=== PATIENT | female | born 1945 | race Caucasian/White ===

== ENCOUNTER → 2017-10-31 | Outpatient (CLI) | payer MEDICARE, OTHER ==
[~2017-10-31] MED LIST: AMBIEN 5 MG TABL5 M1 PO; AMOXICILLIN 50500 MG PO; ASPIR 8181 MG PO; ASPIRIN325 PO; ASPIRIN81 M2 PO; CELEXA20 MG PO; GLUCOTROL5 MG PO; HUMALOG100 UNIT/1 SUBQ; HYDROCHLOROTHIA25 M2 PO; IRON PO; LEVOTHYROXIN0.075 MG PO; LIPITOR 20 MG T20 M1 PO; LISINOPRIL10 MG PO; NORCO 5-325 TA1 EACH PO; NORVASC2.5 MG PO; PEPCID20 MG PO; PRANDIN1 MG PO; SIMVASTATIN40 MG PO; TYLENOL325 MG PO; VITAMIN B-12500 MCG PO
== END ==
LOC: M.RAD 09:17
DX: M54.42 Lumbago with sciatica, left side (principal); M25.552 Pain in left hip; R10.2 Pelvic and perineal pain; I69.398 Other sequelae of cerebral infarction; K21.9 Gastro-esophageal reflux disease without esophagitis; E11.9 Type 2 diabetes mellitus without complications; E03.9 Hypothyroidism, unspecified; E78.5 Hyperlipidemia, unspecified; I10 Essential (primary) hypertension; I44.7 Left bundle-branch block, unspecified; I25.10 Atherosclerotic heart disease of native coronary artery without angina pectoris; Z98.890 Other specified postprocedural states; Z90.710 Acquired absence of both cervix and uterus

== ENCOUNTER 2017-11-08 11:31 | Emergency (ER) | payer MEDICARE, OTHER ==
[~2017-11-08] VITALS: Ht 162.6 cm; Wt 81.7 kg
--- NOTE | ~2017-11-08 | EKG ---
[place] [address] ELECTROCARDIOGRAM REPORT Name: ARON YANG Room: [facility]#: [id number] Admission: 11/08/17 Attend Phys: Discharge: 11/08/17 Date of : 43 Report #: [id number] THIS REPORT FOR: //name// [facility] ED Test Date: 2017-11-08 Test Time: 11:38:21 Pat Name: ARON CELIA Department: Room: Gender: F Data Security Analyst: Diego VICENTE : 1945 Requested By: Christo Carey Order Number: [id number] MD: Measurements Intervals [place] Rate: 87 P: 46 UT: 159 QRS: -16 QRSD: 141 T: 111 QT: 386 QTc: 465 Interpretive Statements Sinus rhythm Consider left atrial enlargement Left bundle branch block Compared to ECG 01/08/2017 14:50:46 No significant changes [email or web address] By: [id number] Epiphany EpiphanyMD /EPI
[~2017-11-08 11:31] MED LIST changes: -ASPIR 8181 MG PO; -GLUCOTROL5 MG PO; -HYDROCHLOROTHIA25 M2 PO; -IRON PO; -NORCO 5-325 TA1 EACH PO; -PRANDIN1 MG PO; -SIMVASTATIN40 MG PO
[2017-11-08 12:06] LABS: ABSOLUTE BASOPHILS 0.1 thou/uL (0.0-0.2); ABSOLUTE EOSINOPHILS 0.1 thou/uL (0.0-0.7); ABSOLUTE LYMPHOCYTES 2.5 thou/uL (0.8-5.3); ABSOLUTE MONOCYTES 0.9 thou/uL (0.0-1.2); ABSOLUTE NEUTROPHILS 7.3 thou/uL (1.6-8.1); BASOPHILS 0.6 %; EOSINOPHILS 1.3 %; HEMATOCRIT 39.5 % (37.0-47.0); HEMOGLOBIN 13.1 gm/dL (12.0-15.0); LYMPHOCYTES 23.1 %; MCH 26.1 pg (26.0-34.0); MCHC 33.1 g/dL (28.0-37.0); MONOCYTES 8.1 %; MPV 7.8 fl. (7.2-11.1); NUCLEATED RBCS 0 /100WBC; PLATELET COUNT* 335 thou/uL (150-400); POLYS 66.9 %; RBC 5.01 mil/uL (4.20-5.00); RDW-CV 15.8 % (10.5-14.5); WBC 10.8 thou/uL (4.0-11.0)
[2017-11-08 12:15] LABS: ANION GAP 12 mmol/L (7-16); BUN 22 mg/dL (7-18); CALCIUM 9.2 mg/dL (8.5-10.1); CHLORIDE 99 mmol/L (98-107); CO2 25 mmol/L (21-32); CREATININE 1.1 mg/dL (0.6-1.3); GLUCOSE 163 mg/dL (70-99); POTASSIUM 3.1 mmol/L (3.5-5.1); SODIUM 136 mmol/L (136-145)
[2017-11-08 12:19] LABS: APTT 23.3 Seconds (25.0-31.3); INR 1.1; PROTIME 10.7 Seconds (9.20-11.50)
[2017-11-08 12:26] LABS: ALBUMIN 3.8 g/dL (3.4-5.0); ALKALINE PHOSPHATASE 83 U/L (46-116); NT-PRO BRAIN NAT PEPTIDE 20 pg/mL (<300); SGOT 19 U/L (15-37); SGPT 35 U/L (30-65); TOTAL BILIRUBIN 0.3 mg/dL (<0.1-1.0); TOTAL PROTEIN 7.4 g/dL (6.4-8.2); TROPONIN-I LEVEL <0.06 ng/mL (<0.06)
[2017-11-08] MEDS ORDERED: PRANDIN1 MG PO (12:48)
[2017-11-08] MEDS ORDERED: GLUCOTROL5 MG PO (12:48)
[2017-11-08] MEDS ORDERED: ASPIR 8181 MG PO (12:48)
[2017-11-08] MEDS ORDERED: HYDROCHLOROTHIA25 M2 PO (12:49)
[2017-11-08] MEDS ORDERED: SIMVASTATIN40 MG PO (12:50)
[2017-11-08] MEDS ORDERED: IRON PO (12:56)
[2017-11-08 13:01] VITALS: BP 140/85
== END 2017-11-08 13:02 | disposition home or self-care (01) ==
LOC: M.ERS 11:31
PROVIDERS: Family Medicine
DX: R53.1 Weakness (principal); I10 Essential (primary) hypertension; E11.9 Type 2 diabetes mellitus without complications; E03.9 Hypothyroidism, unspecified; G43.909 Migraine, unspecified, not intractable, without status migrainosus; K21.9 Gastro-esophageal reflux disease without esophagitis; F41.9 Anxiety disorder, unspecified; Z90.710 Acquired absence of both cervix and uterus; Z87.442 Personal history of urinary calculi; Z86.73 Personal history of transient ischemic attack (TIA), and cerebral infarction without residual deficits; Z88.8 Allergy status to other drugs, medicaments and biological substances; Z88.1 Allergy status to other antibiotic agents; Z88.5 Allergy status to narcotic agent; Z88.2 Allergy status to sulfonamides

== ENCOUNTER → 2017-11-08 | Outpatient (CLI) | payer MEDICARE, OTHER | LOC: M.MRI 13:49 | DX: M51.26 Other intervertebral disc displacement, lumbar region (principal); M25.78 Osteophyte, vertebrae; M46.86 Other specified inflammatory spondylopathies, lumbar region; K21.9 Gastro-esophageal reflux disease without esophagitis; E11.9 Type 2 diabetes mellitus without complications; E03.9 Hypothyroidism, unspecified; E78.5 Hyperlipidemia, unspecified; I10 Essential (primary) hypertension; I25.10 Atherosclerotic heart disease of native coronary artery without angina pectoris; I44.7 Left bundle-branch block, unspecified; I69.398 Other sequelae of cerebral infarction; N39.0 Urinary tract infection, site not specified; I69.354 Hemiplegia and hemiparesis following cerebral infarction affecting left non-dominant side; I69.320 Aphasia following cerebral infarction; I69.321 Dysphasia following cerebral infarction; Z87.442 Personal history of urinary calculi; Z90.710 Acquired absence of both cervix and uterus ==

== ENCOUNTER → 2017-11-21 | Outpatient (CLI) | payer MEDICARE, OTHER ==
[~2017-11-21] MED LIST changes: +ASPIR 8181 MG PO; +GLUCOTROL5 MG PO; +HYDROCHLOROTHIA25 M2 PO; +IRON PO; +NORCO 5-325 TA1 EACH PO; +PRANDIN1 MG PO; +SIMVASTATIN40 MG PO
--- NOTE | 2018-01-01 08:22 | PAINCON ---
[address] [address] PAIN MANAGEMENT CONSULTATION Name: ARON YANG Room: [facility] Paz#: [id number] Admission: 11/21/17 Attend Phys: Jabari Doshi MD Discharge: Date of : 43 Report #: [id number] THIS REPORT FOR: //name// CC: MAIA LOUIS DO Maia Doshi DATE OF SERVICE: 11/21/2017 HISTORY OF PRESENT ILLNESS: The patient is a 72-year-old female who has been referred to the Pain Clinic for evaluation. States that she has been having pain and discomfort, which has worsened over the last 3 to 4 weeks. She is having pain in her left hip as well as down into the low back area radiating down to her left leg. She has had problems with her leg and has had back surgery on two occasions in the past. She rates her pain as a 7 to 8. She notes that her pain became more problematic around [place] time after she moved furniture around her house. She went to her primary care physician. At that time, she was given a Medrol Dosepak, which she completed. She continues to have pain that is radiating down her left leg. She has tried nonsteroidal anti-inflammatory medications without significant improvement. Denies any significant bowel or bladder discomfort. She tried tizanidine to help decrease the spasm and pain. She notes that she had some side effects as a result of this medication. She has continued to take Neurontin. At this juncture, she has come to the Pain Clinic with the hopes of proceeding with an epidural steroid injection to help quiet her pain. ALLERGIES: CIPROFLOXACIN, CODEINE, LISINOPRIL, SULFA, TRILEPTAL, LEVAQUIN, OMEPRAZOLE, SOME REACTION TO TIZANIDINE. CURRENT MEDICATIONS: Enteric aspirin 81 mg daily, Celexa 20 mg daily, Glucotrol 5 mg b.i.d., hydrochlorothiazide 25 mg, Synthroid 0.075 mg, Prandin 1 mg t.i.d., Zocor 40 mg evening, Ambien 5 mg at bedtime, iron. PAST MEDICAL HISTORY: 1. Migraines. 2. GERD. 3. Anxiety. 4. CVA. 5. TIAs. 6. Hypertension. 7. Diabetes. 8. Kidney stones. 9. Hypothyroidism. 10. Anxiety. PAST SURGICAL HISTORY: [place] [address] PAIN MANAGEMENT CONSULTATION Name: ARON YANG Chapis Room: [facility]#: [id number] Admission: 11/21/17 Attend Phys: Jabari Doshi MD Discharge: Date of : 43 Report #: [id number] 1. Right ICA coiling. 2. Back surgery x 2. 3. Carpal tunnel release. 4. Cataract. SOCIAL HISTORY: The patient is a nonsmoker. She does not drink. Denies use of illegal drugs. FAMILY HISTORY: Coronary artery disease and hypertension. REVIEW OF SYSTEMS: Generally in good health given her current condition. Denies any significant fevers, weight loss, weight gain. HEENT: Eyes: Blurred vision with some visual loss. Ears: Denies any tinnitus or hearing loss. Denies nosebleeds or nasal congestion. CARDIAC: Reports history of occasional heart fluttering. RESPIRATORY: Denies significant sputum production. She has right-sided shoulder pain history. No significant skin rashes or lesions. Occasional left-sided paresis related to her old stroke. Denies any significant bleeding at this juncture. LABORATORY DATA: No new lab values are available at the time of our interview. PHYSICAL EXAMINATION: VITAL SIGNS: Blood pressure 142/66, heart rate 78, respiratory rate 16, room air saturation 96%, temperature 98.0, height 5 feet 5 inches, weight 173 pounds, BMI is 28. GENERAL: The patient is a well-developed white female, appears her stated age. She is alert and oriented x 3. Affect appears appropriate. HEENT: Head is atraumatic. Hearing is within normal limits. Extraocular eye muscles intact and sclerae are nonicteric. No nasal discharge or complaints. Moist buccal membranes. NECK: Without adenopathy or masses. LUNGS: Clear to auscultation. ABDOMEN: Nontender. MUSCULOSKELETAL: Alignment, the patient complains of pain in her lower back as well as pain radiating into the left hip and down into the posterior portion of her left leg in the L5 dermatomal distribution. The patient notes numbness, tingling and weakling down in the L5-S1 dermatomal distribution. She has a well-healed scar in the mid portion of her back. IMPRESSION: 1. History of back pain, status post back surgery x 2 with evidence of L5-S1 nerve root irritation after moving furniture at home 2. Anxiety. 3. Aphasia history. 4. Cerebrovascular accident. 5[place] [address] PAIN MANAGEMENT CONSULTATION Name: ARON YANG Room: [facility]#: [id number] Admission: 11/21/17 Attend Phys: Jabari Doshi MD Discharge: Date of : 43 Report #: [id number] 6. Diabetes mellitus. 7. Hypertension. 8. Hypothyroidism. 9. Insomnia. RECOMMENDATIONS: We discussed treatment options with the patient. Risks and benefits of an epidural steroid injection were discussed. The patient has had surgery in the lower portion of her back. At this point, the normal anatomy has been changed secondary to the surgery. We explained to the patient that a transforaminal epidural steroid injection would be a reasonable approach. Possible complications of the procedure were reviewed with the patient. They include but are not limited to infection, increased muscle soreness, headache, bleeding, nerve damage. We reviewed the patient's problem using a model. She states that she understands and would like to proceed. PROCEDURE NOTE: The patient was placed in the prone position. Fluoroscopy was used to identify the left target area, which is at the L5-S1 area. Anterior and posterior views with fluoroscopy as well as a lateral view was used to identify the appropriate location. The patient's back was sterilely prepped. It was infiltrated with 0.25% bupivacaine. Total of 80 mg Depo-Medrol and 20 mg triamcinolone was injected after appropriate positioning. Aspiration did not reveal any more CSF. The patient remained in the Pain Clinic for an appropriate amount of time. She will follow up in the future for additional treatment as needed. We would like to thank you for letting us participate in her care. We hope she continues to improve. <ELECTRONICALLY SIGNED> By: Jabari Doshi MD 01/01/18 0822 0846 2204N. Juve Doshi MD /nt
== END | disposition home or self-care (01) ==
LOC: M.PC 01:44
DX: M54.16 Radiculopathy, lumbar region (principal); I10 Essential (primary) hypertension; E11.9 Type 2 diabetes mellitus without complications; K21.9 Gastro-esophageal reflux disease without esophagitis; G43.909 Migraine, unspecified, not intractable, without status migrainosus; E03.9 Hypothyroidism, unspecified; G47.00 Insomnia, unspecified; F41.8 Other specified anxiety disorders; F32.89 Other specified depressive episodes; Z82.49 Family history of ischemic heart disease and other diseases of the circulatory system; Z98.890 Other specified postprocedural states; Z86.73 Personal history of transient ischemic attack (TIA), and cerebral infarction without residual deficits; Z87.442 Personal history of urinary calculi; Z79.82 Long term (current) use of aspirin; Z79.899 Other long term (current) drug therapy; Z88.6 Allergy status to analgesic agent; Z88.2 Allergy status to sulfonamides; Z88.8 Allergy status to other drugs, medicaments and biological substances

== ENCOUNTER → 2017-12-12 | Outpatient (CLI) | payer MEDICARE, OTHER ==
--- NOTE | 2018-01-01 08:27 | PAINCON ---
[address] [address] PAIN MANAGEMENT CONSULTATION Name: ARON YANG Room: [facility] Paz#: [id number] Admission: 12/12/17 Attend Phys: Jabari Doshi MD Discharge: Date of : 43 Report #: [id number] THIS REPORT FOR: //name// CC: MAIA LOUIS DO Maia Doshi DATE OF SERVICE: 12/12/2017 FOLLOWUP HISTORY: "The pain that was going down into my leg is better, but I am still having some pain in the upper buttocks area." FOLLOWUP HISTORY: The patient is a 72-year-old female who has been seen in the Pain Clinic because of lumbar radiculopathy involving the L5-S1 nerve root on the left. She underwent an epidural steroid injection using a transforaminal approach. She gleaned significant benefits greater than 50% after the last injection. She is now having pain that is in the upper portion of the buttocks, but less radiating down into the leg. Still has some positive/increased pain when she bends over or moves her legs. As you recall, she has had surgery on her back on two different occasions. She continues to be followed by her primary physician. Medrol Dosepak was helpful. Continues to note some muscle spasms. She tries to take as little medication as possible secondary to confusion, which can develop as a result of use of medications. She has returned to the Pain Clinic for the shot of another injection. Notes that her pain continues to be more problematic at night. She has noted some nausea associated with the injection and other inject medications in the past. Finds that if she takes a Dramamine-type medication, that helps to abort the nausea. Notes that her blood sugars did increase somewhat to about 300 level after the last injection and she did continue to monitor that. ALLERGIES: CIPROFLOXACIN, CODEINE, LISINOPRIL, SULFA, TRILEPTAL, LEVAQUIN, OMEPRAZOLE, HAS HAD SOME REACTION TO TIZANIDINE. MEDICATIONS: We reviewed her current medications and they include enteric aspirin 81 mg, Celexa 20 mg, Glucotrol 5 mg, hydrochlorothiazide 25 mg, Synthroid 0.075 mg, Prandin 1 mg t.i.d., Zocor 40 mg in the evening, Ambien 5 mg at bedtime, iron. PAIN CLINIC ASSESSMENT: 1. The patient has some history of osteoarthritis and low back degenerative joint disease. 2. Height 5 feet 5 inches, weight 173 pounds, BMI is 29. 3. Vital signs: Blood pressure 114/70, pulse 89, respiratory rate 16, room air saturation 97%, temperature 98.1. 4. Pain rated at 6 to 7 at this juncture. 5. Fall risk: The patient has not fallen [place] [address] PAIN MANAGEMENT CONSULTATION Name: ARON YANG [id number] Admission: 12/12/17 Attend Phys: Jabari Doshi MD Discharge: Date of : 43 Report #: [id number] 6. The patient is not on blood thinners. 7. The patient is being treated for hypertension. 8. Opioids greater than 6 weeks: The patient is not taking opioid medications on any long-term basis. 7. Risk assessment tool. 8. Functional assessment tool. 9. Recreational drug use, the patient does not smoke. 10. The patient does not drink alcoholic beverages. PHYSICAL EXAMINATION: GENERAL: The patient is a well-developed, white female, somewhat obese, appears her stated age. Affect is within normal limits. The patient is alert and oriented x 3. The patient is somewhat loquacious. HEENT: The patient is normocephalic, atraumatic. Extraocular eye muscles intact. Hearing within normal limits. Eyes are nonicteric. Complains of some nasal congestion, but does not have a cold. NECK: Without adenopathy or bruits. MUSCULOSKELETAL: Upper extremity muscle strength is judged to be 5/5 for the major muscle groups. Difficult to have the patient to participate in checking deep tendon reflexes secondary to the patient's compliance. The patient's lumbar area, musculoskeletal appears within normal limits without significant kyphosis, scoliosis or lordosis. The patient has pain and discomfort, which is radiating down the left leg and into the top of the biceps of her right leg. She has a well-healed scar from approximately L3 to the dorsum of her sacrum. LUNGS: Clear to auscultation. HEART: Normal S1, S2. IMPRESSION: 1. History of back pain, status post back surgery x 2 with evidence of improved, but continued L5-S1 nerve irritation after moving furniture at home. 2. Anxiety. 3. Aphasia history. 4. Cerebrovascular accident/transient ischemic attack. 5. Depression. 6. Diabetes. The patient continues to monitor blood sugars. 7. Hypertension. 8. Hypothyroidism. 9. Insomnia. RECOMMENDATIONS: We discussed treatment options with the patient. Risks and benefits of another injection were discussed. The patient underwent a transforaminal epidural steroid injection at the last visit. This provided greater than 50% improvement. Still has pain, which she rates as a 6 to 7 and has pain radiating down into her buttocks. It is not progressing as it sore down into her left leg and she would like to undergo another epidural steroid injection with the hope that this could help improve things and decrease her [facility] [address] [place] [address] PAIN MANAGEMENT CONSULTATION Name: ARON YANG Room: [facility]#: [id number] Admission: 12/12/17 Attend Phys: Jabari Doshi MD Discharge: Date of : 43 Report #: [id number] discomfort. We discussed the treatment option with the patient. Risks and benefits of a transforaminal epidural steroid injection were again reviewed. They include but are not limited to infection, increased muscle soreness, bleeding, headache, nerve trauma and continued pain or worsening of the pain. The patient elects to proceed. PROCEDURE NOTE: The patient was placed in the prone position. Fluoroscopy was used to identify the target area on the left. Anterior and posterior evaluation in conjunction with lateral visualization with fluoroscopy and the target area was used. This area had been sterilely prepped with Betadine and infiltrated with 0.25% bupivacaine. A 20-gauge spinal needle was then advanced into the appropriate place using visualization from the fluoroscopy. After, it was placed at the L5-S1 nerve root area. A total of 80 mg Depo-Medrol, 20 mg triamcinolone was injected. Aspiration did not reveal any CSF. The patient did not have any significant pain or discomfort during the injection process. She remained in the pain clinic for an appropriate amount of time. A Band-Aid was placed at the injection site. There was no significant bleeding. She was then escorted to the recovery area, where she remained for an appropriate amount of time. She will follow up in the future. She will monitor blood sugars. She will call us if she has any concerns. <ELECTRONICALLY SIGNED> By: Jabari Doshi MD 01/01/18 0827 1223 0038N. Juve Doshi MD /nt
== END | disposition home or self-care (01) ==
LOC: M.PC 03:38
DX: M54.16 Radiculopathy, lumbar region (principal); I10 Essential (primary) hypertension; E11.9 Type 2 diabetes mellitus without complications; E03.9 Hypothyroidism, unspecified; G47.00 Insomnia, unspecified; M19.90 Unspecified osteoarthritis, unspecified site; F41.8 Other specified anxiety disorders; F32.9 Major depressive disorder, single episode, unspecified; Z86.73 Personal history of transient ischemic attack (TIA), and cerebral infarction without residual deficits; Z88.6 Allergy status to analgesic agent; Z88.2 Allergy status to sulfonamides; Z98.890 Other specified postprocedural states; Z88.8 Allergy status to other drugs, medicaments and biological substances; Z79.899 Other long term (current) drug therapy; Z79.82 Long term (current) use of aspirin; Z79.891 Long term (current) use of opiate analgesic

== ENCOUNTER → 2018-01-09 | Outpatient (CLI) | payer MEDICARE, OTHER ==
--- NOTE | 2018-01-15 14:40 | PAINCON ---
[address] [address] PAIN MANAGEMENT CONSULTATION Name: ARON YANG [id number] Admission: 01/09/18 Attend Phys: Jabari Doshi MD Discharge: Date of : 43 Report #: [id number] THIS REPORT FOR: //name// CC: Shannon Hidalgo DATE OF SERVICE: 01/09/2018 FOLLOWUP COMPLAINT: Here for an epidural steroid injection. FOLLOWUP HISTORY: The patient is a 72-year-old female who has been seen in the pain clinic in the past because of lumbar radiculopathy. As you recall, she suffers from lumbar radiculopathy. She has had some pain and discomfort radiating down the L5-S1 nerve root area. She has undergone epidural steroid injections and returns today for an injection. She rates her pain as a 2-3. It can rise to the level of 9-10 later in the day. Denies any significant bowel or bladder changes. Notes that the pain can be problematic when she is driving. It can get pretty uncomfortable. Is experiencing pain that is radiating down into her leg. Finds that her medications are somewhat helpful. She is unable to stay as active as she would like to. Unable to "fix dinner." Oftentimes, she has to use a crock-pot to cook her meals because of use of least amount of energy. Notes that she has pain when she bends and move her legs. She has had surgery on her back on 2 different occasions as you may recall. She does have diabetes and does monitor blood sugars. She did note that her blood sugar did increase to about 300 after one injection in the past. States that she would monitor that. ALLERGIES: CIPROFLOXACIN, CODEINE, LISINOPRIL, SULFA, TRILEPTAL, LEVAQUIN, OMEPRAZOLE, NOTED SOME PROBLEMS WITH TIZANIDINE IN THE PAST. CURRENT MEDICATIONS: Reviewed and include aspirin 81 mg, Celexa 20 mg, Glucotrol 5 mg, hydrochlorothiazide 25 mg, Synthroid 0.075 mg, Prandin 1 mg t.i.d., Zocor 40 mg in the evening, Ambien 5 mg at bedtime, and iron. PAIN CLINIC ASSESSMENT: 1. The patient has some history of osteoarthritis and low back degenerative disease. 2. Height 5 feet 5 inches, weight 173 pounds, BMI is 29. 3. Blood pressure 133/64, heart rate 98, respiratory rate 16, room air saturation 95%, temperature 98.2. 4. Pain rate is 4/10. 5. Fall risk. The patient has not fallen in the last 3 months. 6. The patient is not on blood thinner. 7. The patient is being treated for hypertension. 8. Opioids greater than 6 weeks. The patient [place] [address] PAIN MANAGEMENT CONSULTATION Name: ARON YANG [id number] Admission: 01/09/18 Attend Phys: Jabari Doshi MD Discharge: Date of : 43 Report #: [id number] on a long-term basis. 9. Risk assessment tool. 10. Functional assessment tool. 11. Recreational drug use. The patient denies use of recreational drugs. 12. The patient does not smoke. 13. The patient does not drink alcoholic beverages. PHYSICAL EXAMINATION: GENERAL: The patient is a well-developed white female. She is somewhat obese. She appears her stated age. Her affect is within normal limits. The patient is alert and oriented x 3. The patient is somewhat loquacious. HEENT: Normocephalic, atraumatic. Extraocular eye muscles intact. The patient's hearing is within normal limits. Eyes are nonicteric. The patient does not complain of any nasal congestion. She does not have a cold. NECK: Without adenopathy or bruits. MUSCULOSKELETAL: Upper extremity is judged to be 5/5 for the major muscle groups in the upper extremities. The patient has muscle strength judged to be 5/5 for the major muscle groups of any upper extremities. The patient does have some difficulty relaxing. Deep tendon reflexes are difficult to ascertain. Musculoskeletal is without significant kyphosis, scoliosis or lordosis. The patient does have pain and discomfort radiating down the left leg and to the top of her right leg in the area of the biceps. She has a well-healed scar from approximately L3 to the dorsum of her sacrum. LUNGS: Clear to auscultation. HEART: Regular rate and rhythm. IMPRESSION: 1. History of back pain, status post back surgeries x 2 with evidence of improvement after epidural steroid injection in the past. The patient noted some worsening of her pain and discomfort after moving furniture at home. 2. Anxiety. 3. Aphasic history. 4. Cerebrovascular accident/transient ischemic attack. 5. Depression. 6. Diabetes. 7. Hypertension. 8. Hypothyroidism. 9. Insomnia. RECOMMENDATIONS: We discussed treatment options with the patient. Risks and benefits of an epidural steroid injection were discussed. Possible complications of the procedure were reviewed. They included, but are not limited to infection, increased muscle soreness, headache, bleeding, nerve damage, and trauma to the nerve. No improvement in pain or worsening of the pain. The patient elects to proceed. [facility] [address] [place] [address] PAIN MANAGEMENT CONSULTATION Name: ARON YANG Room: [facility]#: [id number] Admission: 01/09/18 Attend Phys: Jabari Doshi MD Discharge: Date of : 43 Report #: [id number] PROCEDURE NOTE: The patient was taken to the procedure area. She was assisted in moving from her chair to the examination table. She was placed in the prone position. Her back was sterilely prepped with Betadine. A fluoroscopy visualization using an anterior, posterior as well as lateral visualization was used. After appropriate placement at the L4-L5 area a total of 80 mg Depo-Medrol was placed. The patient tolerated the procedure well. There were no complications. She remained in the pain clinic for an appropriate amount of time. She will follow up. The left hip area was injected. We would like to thank you for letting us participate in the care. We hope she continues to improve. <ELECTRONICALLY SIGNED> By: Jabari Doshi MD 01/15/18 1440 2331 0514N. Juve Doshi MD /nt
== END | disposition home or self-care (01) ==
LOC: M.PC 01:34
DX: M54.16 Radiculopathy, lumbar region (principal); G89.29 Other chronic pain; I10 Essential (primary) hypertension; E11.9 Type 2 diabetes mellitus without complications; E03.9 Hypothyroidism, unspecified; M19.90 Unspecified osteoarthritis, unspecified site; F32.9 Major depressive disorder, single episode, unspecified; F41.8 Other specified anxiety disorders; Z98.890 Other specified postprocedural states; Z86.73 Personal history of transient ischemic attack (TIA), and cerebral infarction without residual deficits; Z79.899 Other long term (current) drug therapy; Z88.2 Allergy status to sulfonamides; Z88.8 Allergy status to other drugs, medicaments and biological substances; Z79.82 Long term (current) use of aspirin

== ENCOUNTER 2018-01-20 09:56 | Emergency (ER) | payer MEDICARE, OTHER ==
[~2018-01-20] VITALS: Ht 162.6 cm; Wt 78.9 kg
[~2018-01-20 09:56] MED LIST changes: -NORCO 5-325 TA1 EACH PO
[2018-01-20] MEDS ORDERED: ASPIR 8181 MG PO (10:12)
[2018-01-20] MEDS ORDERED: VITAMIN B-12500 MCG PO (10:14)
[2018-01-20] MEDS ORDERED: PRANDIN1 MG PO (10:16)
[2018-01-20] MEDS ORDERED: NORCO 5-325 TA1 EACH PO (12:41)
[2018-01-20 13:00] VITALS: BP 130/68
== END 2018-01-20 13:01 | disposition home or self-care (01) ==
LOC: M.ERS 09:56
DX: M54.42 Lumbago with sciatica, left side (principal); I10 Essential (primary) hypertension; E11.9 Type 2 diabetes mellitus without complications; E03.9 Hypothyroidism, unspecified; G43.909 Migraine, unspecified, not intractable, without status migrainosus; Z90.710 Acquired absence of both cervix and uterus; Z88.2 Allergy status to sulfonamides; Z88.5 Allergy status to narcotic agent; Z88.1 Allergy status to other antibiotic agents

== ENCOUNTER → 2018-11-26 | Outpatient (CLI) | payer MEDICARE, OTHER ==
[~2018-11-26] MED LIST changes: +NORCO 5-325 TA1 EACH PO
== END ==
LOC: M.RAD 11-19 09:00
DX: N91.2 Amenorrhea, unspecified (principal); Z78.0 Asymptomatic menopausal state

== ENCOUNTER → 2019-05-27 | Outpatient (CLI) | payer MEDICARE, OTHER | LOC: M.CT 13:32 | DX: K44.9 Diaphragmatic hernia without obstruction or gangrene (principal); R14.0 Abdominal distension (gaseous); R10.84 Generalized abdominal pain; E11.9 Type 2 diabetes mellitus without complications; E78.5 Hyperlipidemia, unspecified; I10 Essential (primary) hypertension; E66.9 Obesity, unspecified; Z86.73 Personal history of transient ischemic attack (TIA), and cerebral infarction without residual deficits; Z68.39 Body mass index [BMI] 39.0-39.9, adult; Z79.82 Long term (current) use of aspirin; Z79.899 Other long term (current) drug therapy ==

== ENCOUNTER → 2021-08-31 | Day surgery (SDC) | payer MEDICARE, OTHER ==
[~2021-08-31] MED LIST changes: +TRAMADOL 50 MG50 MG PO
[2021-08-31 11:06] LABS: HEMATOCRIT 35.5 % (37.0-47.0); HEMOGLOBIN 11.7 gm/dL (12.0-15.0); MCH 27.7 pg (26.0-34.0); MCHC 33.1 g/dL (28.0-37.0); MCV 83.8 fL (80.0-100.0); MPV 7.5 fl. (7.2-11.1); RBC 4.24 mil/uL (4.20-5.00); RDW-CV 15.4 % (10.5-14.5); WBC 6.5 thou/uL (4.0-11.0)
[2021-08-31 11:13] LABS: CREATININE 1.1 mg/dL (0.6-1.3); POTASSIUM 3.9 mmol/L (3.5-5.1)
--- NOTE | 2021-08-31 14:03 | EKG ---
[place] [address] ELECTROCARDIOGRAM REPORT Name: ARON YANG Room: [facility]#: [id number] Admission: 08/31/21 Attend Phys: Kelly Griffiths, Discharge: Date of : 43 Date of Service: 08/31/21 1109 Report #: [id number] THIS REPORT FOR: //name// [facility] Test Date: 2021-08-31 Test Time: 11:09:18 Pat Name: ARON YANG Department: Room: Gender: F [employer]phalt [employer]oother: [facility] : 1945 Requested By: Kelly Griffiths Order Number: [id number] Marcos MD: Ash Plaza Measurements Intervals [place] Rate: 65 P: -13 MI: 156 QRS: 4 QRSD: 145 T: 55 QT: 461 QTc: 480 Interpretive Statements Sinus rhythm Left bundle branch block Compared to ECG 11/08/2017 11:38:21 No significant changes Electronically Signed On 08-31-2021 14:03:29 CDT by Ash Plaza [email or web address] <ELECTRONICALLY SIGNED> By: Ash Plaza MD, FACC 08/31/21 1403 1109 1109 Ash Plaza MD, [facility] /EPI
--- NOTE | 2021-09-05 10:34 | OP ---
[address] [address] OPERATIVE REPORT Name: CELIAARON CARMELITA Room: [facility]#: [id number] Admission: 08/31/21 Attend Phys: Kelly Griffiths DO Discharge: Date of : 43 Report #: [id number] THIS REPORT FOR: cc: Shannon Nayak Linda J. DO Brock, Christie M. DO ~ DATE OF SURGERY: 08/31/2021 PREOPERATIVE DIAGNOSIS: Left breast sebaceous cyst. POSTOPERATIVE DIAGNOSIS AND FINDINGS: Left breast sebaceous cyst. 1. Medial cyst incision 4.5 cm, mass 2 x 2 x 0.5 cm depth subcutaneous. 2. Lateral cyst incision 2.5 cm, mass 3 x 3 x 5 mm depth subcutaneous. SURGEON: Kelly Griffiths DO ASSISTANTS: Emerson Brownlee DO and Juliette Spring MS-3. OPERATION: Left breast sebaceous cyst excision x 2. ANESTHESIA TYPE: General and local with lidocaine. ESTIMATED BLOOD LOSS: 3 mL. SPECIMENS REMOVED: Sebaceous cyst x 2. COMPLICATIONS: None. The patient tolerated the procedure well and was transferred to the PACU in stable condition. INDICATIONS FOR PROCEDURE: The patient is a 76-year-old female who presented to our office with a lesion on her left breast. It has enlarged over time and intermittently drains fluid. Recommended excision of sebaceous cyst. Discussed with the patient the risks and complications of the procedure. She elected to proceed. Consent was obtained. DESCRIPTION OF PROCEDURE: She was transferred to the operating room and transferred to the operating table, placed in a supine position. The left breast was prepped in sterile fashion and then draped in sterile fashion. Time-out was called prior to the procedure. The left breast was marked with a marking pen over 2 areas, where the sebaceous cysts were present, 1 medially, 1 laterally. A 15 blade was used to incise the skin. Cautery was then used to complete dissection down to the subcutaneous tissue. The sebaceous cyst was removed x 2. The skin was then closed with 3-0 Vicryl, followed by 4-0 Monocryl and covered with skin glue. Time-[place] [address] OPERATIVE REPORT Name: ARON YANG [id number] Admission: 08/31/21 Attend Phys: Kelly Griffiths DO Discharge: Date of : 43 Report #: [id number] counts were correct. The patient was then transferred to PACU in stable condition. <ELECTRONICALLY SIGNED> By: Kelly Griffiths DO 09/05/21 1034 1357 1439Chrisjesus Griffiths DO /nt
--- NOTE | 2021-09-05 12:07 | PATH ---
[address] [address] PATHOLOGY RPT PROCEDURE Name: ANNE ANNA Room: [facility].R.#: [id number] Admission: 08/31/21 Date of : 43 Discharge: Report #: [id number] Path Case #: [id number] [facility] Accession Number: [id number] . 01 Material submitted: . breast - LEFT BREAST CYST. Modifiers: left . 01 Clinical history: . Sebaceous cyst left breast . 02 Diagnosis: Left breast cyst: - Benign skin with small epithelial inclusion cyst and adjacent dermatofibroma (cutaneous fibrous histiocytoma). (GIANNA:seth; 09/04/2021) MBR 09/04/2021 1323 Local . 02 Electronically signed: . Tommie Fraser MD, Pathologist NPI- [id number] . 01 Gross description: . The specimen is received in formalin, labeled "Anne Anna, left breast cyst". Received is a 3 g aggregate of bright yellow lobulated tissue and pale segura skin measuring 3.0 x 2.0 x 1.3 cm in aggregate dimensions. The surgical margins are inked. Sectioning reveals bright yellow, lobulated cut surfaces throughout with no grossly distinct nodules or lesions. The specimen is submitted entirely in cassettes A1 through A5. The cold ischemic time is 1 hour and 2 minutes. The total formalin fixation time is 26 hours and 37 minutes. ([facility]; 09/01/2021) QAC/QAC 09/01/2021 1206 Local . 02 Pathologist provided ICD-10: D23.5, L72.0 . 02 CPT . [id number] Specimen Comment: A courtesy copy of this report has been sent to [phone], [phone]- Specimen Comment: [id number] Specimen Comment: Report sent to [facility] Specimen Comment: A duplicate report has been generated due to demographic updates. Performed at: [address] [facility] [id number] MD Wilner Hernandez MD Phone: [phone] [place] [address] PATHOLOGY RPT PROCEDURE Name: ANNE ANNA Room: [facility] M.R.#: [id number] Admission: 08/31/21 Date of : 43 Discharge: Report #: [id number] Path Case #: [id number] Performed at: [facility] [place] [address], [place] [id number] MD Tommie Fraser MD Phone: [phone]
== END | disposition home or self-care (01) ==
LOC: M.SUR 07:32
PROVIDERS: ATTEND Surgery
DX: L72.0 Epidermal cyst (principal); D23.5 Other benign neoplasm of skin of trunk; Z98.890 Other specified postprocedural states; Z79.899 Other long term (current) drug therapy; Z88.2 Allergy status to sulfonamides; Z86.73 Personal history of transient ischemic attack (TIA), and cerebral infarction without residual deficits; Z88.8 Allergy status to other drugs, medicaments and biological substances